=== PATIENT | male | born 1985 ===

== ENCOUNTER 2017-10-24 10:06 | Emergency (ER) | payer OTHER ==
[~2017-10-24] VITALS: Ht 170.2 cm; Wt 97.1 kg
[~2017-10-24 10:06] MED LIST: DOLOGEN CAPLET1 EACH PO; MEDROL4 MG PO
[2017-10-24] MEDS ORDERED: KETO10TA2 PO (12:01)
[2017-10-24] MEDS ORDERED: NORFLEX100MG PO (12:03)
== END 2017-10-24 12:12 | disposition home or self-care (01) ==
LOC: ER 10:06
DX: M94.0 Chondrocostal junction syndrome [Tietze] (principal); R07.89 Other chest pain